=== PATIENT | male | born 1985 | race Caucasian/White ===

== ENCOUNTER 2018-01-16 04:37 | Emergency (ER) | payer MEDICARE, MEDICAID ==
[~2018-01-16] VITALS: Ht 170.2 cm; Wt 81.6 kg
[2018-01-16 04:59] VITALS: BP 147/98
--- NOTE | 2018-01-16 05:00 | Emergency Room Report ---
History of Present Illness General Chief Complaint: To Be Triaged Source: Patient Present Illness HPI Is a 32-year-old male brought in by police for medical clearance. He was arrested for domestic violence and assault with a knife. He sustained a laceration to his left thumb. Patient denies any complaint. No other injury. No pain or bleeding. Patient History Past Medical History: see triage record, old chart reviewed, psych hx Past Surgical History: none Pertinent Family History: none Social History: Denies: smoking Immunizations: other Reviewed Nursing Documentation: PMH: Agreed; PSxH: Agreed Review of Systems Eye: Denies: eye pain, blurred vision ENT: Denies: ear pain, nose congestion, throat swelling Respiratory: Denies: cough, shortness of breath Cardiovascular: Denies: chest pain, palpitations Gastrointestinal: Denies: abdominal pain, diarrhea, nausea, vomiting Musculoskeletal: Denies: back pain, joint pain Skin: Denies: rash Neurological: Denies: headache, numbness Endocrine: Denies: increased thirst, increased urine Hematologic/Lymphatic: Denies: easy bruising All Other Systems: negative except mentioned in HPI Physical Exam Vital Signs Date Time Temp Pulse Resp B/P (MAP) Pulse Ox O2 Delivery O2 Flow Rate FiO2 01/16/18 04:43 98.7 101 18 147/98 98 Room Air 98.8 vitals unremarkable Sp02 EP Interpretation: reviewed, normal General Appearance: well appearing, no apparent distress, alert Head: normocephalic, atraumatic Eyes: bilateral eye PERRL, bilateral eye EOMI ENT: hearing grossly normal, normal pharynx Neck: full range of motion, supple, no meningismus Respiratory: chest non-tender, lungs clear, normal breath sounds Cardiovascular #1: regular rate, rhythm, no murmur Gastrointestinal: normal bowel sounds, non tender, no mass, no organomegaly, no bruit, non-distended Musculoskeletal: back normal, gait/station normal, normal range of motion, other - He has a superficial laceration to the dorsum of his left thumb over the DIP joint. Full range of motion. Nothing to be sutured. He has dry blood on his hands. No laceration. Neurologic: alert, oriented x3 Psychiatric: mood/affect normal Skin: warm/dry Medical Decision Making Diagnostic Impression: Primary Impression: Laceration of thumb, left Qualified Codes: S61.012A - Laceration without foreign body of left thumb without damage to nail, initial encounter Additional Impression: Examination, medicolegal reason ER Course Patient with superficial laceration. No evidence of tendon involvement or foreign body. He is medically cleared for care home. Last Vital Signs Date Time Temp Pulse Resp B/P (MAP) Pulse Ox O2 Delivery O2 Flow Rate FiO2 01/16/18 04:43 98.7 101 18 147/98 98 Room Air 98.8 Status: unchanged Disposition: D/C TO LAW ENFORCEMENT IN [facility] Condition: Stable Additional Instructions: Keep wound clean. Follow-up with your Dr. in 7 days. Return if worse. BRENNON PANDEY M.D. Jan 16, 2018 05:00
[2018-01-16 05:07] VITALS: BP 147/98
== END 2018-01-16 05:08 ==
LOC: EMR 04:50
DX: S61.012A Laceration without foreign body of left thumb without damage to nail, initial encounter (principal); X99.1XXA Assault by knife, initial encounter; Y92.9 Unspecified place or not applicable
CPT/HCPCS: 99283